=== PATIENT | female | born 1950 | race Caucasian/White ===

== ENCOUNTER 2020-11-11 11:12 | Emergency (ER) | payer MEDICAID ==
[~2020-11-11] VITALS: Ht 157.5 cm; Wt 61.0 kg
[2020-11-11] MEDS ORDERED: TETANUS, DIPHTHERIA, PERTUSSIS VAC/PF 0.5ML (>7YR OLD) IM ONE (12:45)
[2020-11-11] MEDS ORDERED: KETOROLAC 60MG/2ML VIAL IM ONE (12:45)
[2020-11-11] MEDS ORDERED: NAPR-681 MT (16:39)
[2020-11-11 17:35] VITALS: BP 142/77
== END 2020-11-11 18:18 | disposition home or self-care (01) ==
LOC: ER 11:12
DX: S82.892A Other fracture of left lower leg, initial encounter for closed fracture (principal); E11.9 Type 2 diabetes mellitus without complications; V49.40XA Driver injured in collision with unspecified motor vehicles in traffic accident, initial encounter; Y93.89 Activity, other specified; Y92.89 Other specified places as the place of occurrence of the external cause; Y99.8 Other external cause status
CPT/HCPCS: 29515; 71045; 73030; 73560; 73590; 73610; 90471; 90715; 93005; 96372; 99285; J1885; Z7610